=== PATIENT | female | born 1985 | race Caucasian/White ===

== ENCOUNTER 2020-02-10 14:04 | Outpatient (CLI) | payer OTHER, SELFPAY ==
--- NOTE | ~2020-02-10 | XR_ITS ---
EXAMINATION: XR chest 2V EXAM DATE: 02/10/2020 14:28 INDICATION: R07.81 - Pleurodynia, chest pain on inspiration, cough. TECHNIQUE: Frontal and lateral projections of the chest obtained and reviewed. There is no prior samra dy for comparison. FINDINGS: The lungs are clear. There are no pleural effusions. The cardiomediastinal silhouette is within normal limits. There is no pneumothorax suspected. The bones and soft tissues are unremarkab le. IMPRESSION: No acute cardiopulmonary findings. Reviewed, dictated and finalized at location A. E TENDER
== END 2020-02-10 14:05 | disposition home or self-care (01) ==
PROVIDERS: PCP Internal Medicine; Visit Provider Nurse Practitioner
DX: R07.81 Pleurodynia (principal)
CPT/HCPCS: 71046

== ENCOUNTER → 2021-10-12 15:05 | Outpatient (CLI) | payer OTHER, SELFPAY ==
--- NOTE | ~2021-10-12 | MR_ITS ---
EXAMINATION: MR brain/brain stem wo/w con DATE: 10/12/2021 15:44 INDICATION: Migraine headache, unspecified, not intractable, without status migrainosus. TECHNIQUE: Magnetic resonance imaging (MRI) of the brain and brainstem was performed without and with 17 mL MultiHance intravenous contrast. COMPARISON: None. FINDINGS: There is no intracranial hemorrhage, acute infarction, or abnormal intracranial mass lesion . The ventricles are normal in size. The paranasal sinuses are clear. The orbits are normal. The mast oid air cells are normal. IMPRESSION: 1. Normal brain. Reviewed, dictated and finalized at location A. IMPRESSION: 1. Normal brain.
== END ==
PROVIDERS: PCP Internal Medicine; Visit Provider Clinical Nurse Specialist
DX: G43.909 Migraine, unspecified, not intractable, without status migrainosus (principal)
CPT/HCPCS: 70553; A9577

== ENCOUNTER → 2021-10-18 11:38 | Outpatient (CLI) | payer OTHER, SELFPAY ==
--- NOTE | ~2021-10-18 | US_ITS ---
US thyroid INDICATION: Hypothyroidism. Anxiety. Heart palpitations. TECHNIQUE: Real-time sonographic images of the thyroid gland were obtained. COMPARISON: No prior studies for comparison. FINDINGS: The right thyroid lobe measures 5 x 1.4 x 1.4 cm. The left thyroid lobe measures 5.2 x 1.8 x 2 cm. There are multiple bilateral thyroid nodules, largest discrete nodule in the right lobe taras ures 9 x 7 x 6 mm and is hypoechoic, solid, wider than tall with ill-defined margins and no echogenic foci, TR 4. Largest mass in the left lobe measures 1.6 x 1.5 x 1.2 cm and is mixed solid and cystic, hypoechoic, wider than tall, ill-defined margins and no echogenic foci, TR 3. There is another solid hypoechoic mass of the left lobe measuring 1.5 x 1.1 x 1.3 cm which is wider than tall, ill-defined margins and no echogenic foci, TR 4. IMPRESSION: 1. Multiple bilateral thyroid nodules, 2 of which in the left lobe meet sonographic criteria for bio psy. Recommend ultrasound-guided fine-needle aspiration biopsy of 2 dominant masses in the left lobe. Reviewed, dictated and finalized at location A. IMPRESSION: 1. Multiple bilateral thyroid nodules, 2 of which in the left lobe meet sonogr aphic criteria for biopsy. Recommend ultrasound-guided fine-needle aspiration b iopsy of 2 dominant masses in the left lobe.
== END ==
PROVIDERS: PCP Clinical Nurse Specialist; Visit Provider Clinical Nurse Specialist
DX: E05.90 Thyrotoxicosis, unspecified without thyrotoxic crisis or storm (principal); E04.2 Nontoxic multinodular goiter
CPT/HCPCS: 76536

== ENCOUNTER 2021-10-26 10:33 | Outpatient (CLI) | payer OTHER, SELFPAY ==
[2021-10-26 20:30] LABS: Free T4 Free Thyroxine 1.11 ng/mL (0.78-2.19)
[2021-10-26 20:37] LABS: Thyroid Stimulating Hormone 0.127 uIU/mL (0.465-4.680)
== END 2021-10-26 10:34 | disposition home or self-care (01) ==
LOC: ANHGOSHLAB 10:35
PROVIDERS: PCP Internal Medicine; Visit Provider Clinical Nurse Specialist
DX: E05.90 Thyrotoxicosis, unspecified without thyrotoxic crisis or storm (principal)
CPT/HCPCS: 36415; 84439; 84443

== ENCOUNTER 2021-11-09 10:02 | Outpatient (CLI) | payer OTHER, SELFPAY ==
--- NOTE | ~2021-11-09 | US_ITS ---
EXAMINATION: US FNA w image guidance DATE: 11/09/2021 12:21 INDICATION: Multiple left thyroid nodules TECHNIQUE: A time-out was performed to verify the patient's name, date of , and procedure to be performed . Rigging Foreman ultrasound images were obtained. The procedure and its benefits and risks were discussed with the patient. Risks specifically discussed included bleeding and infection. The patient understood th e risks and agreed to proceed. The neck was prepped and draped in the usual sterile manner. 3 mL 1% lidocaine was used for local anesthesia. 6 passes were made with a 25G needle into the lesion. Appr opriate needle location was documented with continuous sonographic guidance. A sterile bandage was a pplied. There were no immediate complications. FINDINGS: Real-time ultrasound demonstrated 4 similar-appearing nodules mixed solid and cystic, wider than tall hypoechoic nodules with smooth or ill defined margins and without echogenic foci (TI-RADS 3, mildly suspicious , FNA if >=2.5 cm, annual followup is >=1.5 cm). The largest measured 1.7 cm in maximal di ameter with a smaller nodules measuring 1.5 cm, 1.4 cm and 1.2 cm. Given the classification is TI RAD S 3 nodules in the similar appearance was elected to proceed with biopsy of one of the largest left t hyroid nodule located in the mid gland. Subsequent images demonstrate biopsy needles advanced into th e dominant left thyroid nodule. IMPRESSION: 1. Successful ultrasound-guided fine needle aspiration of the 1.7 cm and largest of 4 TI RADS 3 mixe d solid and cystic nodules in the left thyroid lobe. Reviewed, dictated and finalized at location A. IMPRESSION: 1. Successful ultrasound-guided fine needle aspiration of the 1.[address] of 4 TI RADS 3 mixed solid and cystic nodules in the left thyroid lobe.
== END 2021-11-09 10:03 | disposition home or self-care (01) ==
PROVIDERS: PCP Internal Medicine; Visit Provider Clinical Nurse Specialist
DX: E04.2 Nontoxic multinodular goiter (principal)
CPT/HCPCS: 10005; 88173; 88305

== ENCOUNTER 2022-01-28 11:51 | Outpatient (CLI) | payer OTHER, SELFPAY ==
[2022-01-28 16:24] LABS: Kit Draw Collected
== END 2022-01-28 11:52 | disposition home or self-care (01) ==
LOC: ANHGOSHLAB 11:53
PROVIDERS: PCP Internal Medicine; Visit Provider Clinical Nurse Specialist
DX: E05.90 Thyrotoxicosis, unspecified without thyrotoxic crisis or storm (principal); Z53.8 Procedure and treatment not carried out for other reasons
CPT/HCPCS: 99199; 36415

== ENCOUNTER 2023-01-21 07:55 | Outpatient (CLI) | payer OTHER, SELFPAY ==
[2023-01-21 18:32] LABS: Alanine Aminotransferase 24 U/L (6-35); Albumin Level 4.1 g/dL (3.5-5.1); Alkaline Phosphatase 61 U/L (38-126); Anion Gap 4 mmol/L (8-16); Aspartate Amino Transferase 38 U/L (14-36); Bilirubin,Total 0.6 mg/dL (0.2-1.3); Blood Urea Nitrogen 11 mg/dL (7-17); Calcium 8.6 mg/dL (8.4-10.2); Carbon Dioxide 30 mmol/L (22-30); Chloride 102 mmol/L (98-107); Cholesterol 143 mg/dL (0-200); Estimated Glomerular Filt Rate > 60; Glucose 84 mg/dL (65-110); HDL Direct 47 mg/dL; Potassium 4.2 mmol/L (3.4-5.0); Sodium 136 mmol/L (137-145); Triglycerides 81 mg/dL (<150)
[2023-01-21 18:43] LABS: LDL Cholesterol Direct 73 mg/dL
[2023-01-21 19:11] LABS: Basophils Percent Auto 0.5 % (0.2-1.2); Eosinophils Absolute Auto 0.2 K/mm3 (0-0.3); Eosinophils Percent Auto 2.8 % (0-4.4); Hematocrit 40.8 % (37.0-47.0); Hemoglobin 12.9 g/dL (12.0-15.0); Immature Granulocyte Absolute 0.02 K/mm3 (0.00-0.031); Immature Granulocyte Percent A 0.3 % (0-0.5); Lymphocytes Absolute Auto 1.54 K/mm3 (0.9-3.2); Lymphocytes Percent Auto 25.5 % (18.3-44.2); Mean Corpuscular HGB Conc 31.6 g/dl (32-36); Mean Corpuscular Volume 88.7 fl (80-100); Mean Platelet Volume 11.4 fl (7.4-10.4); Monocytes Absolute Auto 0.4 K/mm3 (0.1-0.6); Monocytes Percent Auto 6.8 % (2.6-8.5); Neutrophils Absolute Auto 3.9 K/mm3 (1.3-6.7); Neutrophils Percent Auto 64.1 % (45.5-73.1); Platelet Count Result 217 k/mm3 (150-375); White Blood Count 6.1 K/mm3 (4.5-10.0)
[2023-01-24 06:05] LABS: Insulin Level Total 9.5 uIU/mL (<=18.4)
== END 2023-01-21 07:56 | disposition home or self-care (01) ==
LOC: ANHGOSHLAB 07:57
PROVIDERS: PCP Internal Medicine; Visit Provider Clinical Nurse Specialist
DX: Z13.220 Encounter for screening for lipoid disorders (principal); Z13.29 Encounter for screening for other suspected endocrine disorder; E66.9 Obesity, unspecified
CPT/HCPCS: 36415; 80053; 80061; 83525; 85025

== ENCOUNTER 2023-02-25 08:11 | Emergency (ER) | payer OTHER, SELFPAY ==
[2023-02-25 08:24] VITALS: BP 124/85; PULSE 87; RESP 16; TEMP 36.6; O2SAT 100
[2023-02-25 08:26] VITALS: BP 124/85; PULSE 87; RESP 16; TEMP 36.6; O2SAT 100
--- NOTE | 2023-02-25 08:26 | ED.GENADULT ---
HPI - General Adult General Chief complaint: Upper Respiratory Infection Stated complaint: Strep Symptoms Source: patient Mode of arrival: ambulatory Limitations: no limitations History of Present Illness HPI narrative: Patient presents for evaluation of sore throat since yesterday. She reports a headache as well. No fever, chills, nausea, vomiting, diarrhea, cough, shortness of breath, and otalgia. No recent sick contacts to her knowledge. She does not smoke. She tried nyquil without considerable improvement in her symptoms thereafter. Related Data Home Medications Medication Instructions Recorded Confirmed fremanezumab-vfrm 225 mg/1.5 mL 225 mg subcut MONTHLY 01/28/22 02/25/23 subcutaneous auto-injector (Ajovy) Allergies Allergy/AdvReac Type Severity Reaction Status Date / Time Penicillins Allergy Unknown Hives Verified 02/25/23 08:23 Review of Systems Review of Systems: CONSTITUTIONAL: Denies fever, chills, or sweats. EYES: Denies visual changes, redness, or discharge. ENT: Reports sore throat. Denies rhinorrhea, congestion, or otalgia. CARDIOVASCULAR: Denies chest pain, palpitations, or edema. RESPIRATORY: Denies cough or dyspnea. GASTROINTESTINAL: Denies abdominal pain, nausea, vomiting, or diarrhea. GENITOURINARY: Denies dysuria or hematuria. SKIN: Denies rash or itching. MUSCULOSKELETAL: Denies back pain, joint pain, or myalgia. NEUROLOGIC: Reports headache. Denies numbness, dizziness, or weakness. PSYCHIATRIC: Denies anxiety or depression. [facility] Past Medical History Medical History Migraine Surgical History Surgical History Delivery by section x2 Hx of appendectomy Family History Family History Mother Hypertension Father Patient's father is in good health Sibling Patient's sister is in good health Grandparent No problems noted. Social History Social History Smoking status: Never smoker Alcohol intake: never Lack of Transportation: No Lack of Food: Never True Current Housing: I Have Housing Concerned About Future Housing: No Difficulty Paying Gas/Electric Bills: No Difficulty Paying for Meds: No Currently Unemployed: No Education: High School Diploma/GED Exam Narrative: GENERAL: Well-appearing, well-nourished, and in no acute distress. HEAD: Normocephalic, atraumatic. EYES: PERRLA and EOMI. ENT: Nares clear, no rhinorrhea or epistaxis. Mucous membranes moist. Posterior pharyngeal erythema without exudate. Uvula is midline. Bilateral TMs pearly arias nonbulging NECK: Supple. No adenopathy or masses. No carotid bruits or JVD CHEST: Clear to auscultation. No respiratory distress. No wheezes rales or rhonchi HEART: Regular rate and rhythm. No murmur heard. Normal peripheral pulses. ABDOMEN: Soft, nontender, nondistended, normal active bowel sounds. EXTREMITIES: Normal range of motion. No edema. SKIN: Warm, dry, no rash. NEURO: No focal deficits. Alert and oriented x3. PSYCH: Normal mood and affect. Course Course Emergency Course: This is a 37-year-old female who presented for evaluation of sore throat. Rapid strep positive. Will start amoxicillin. She indicates she can tolerate amoxicillin despite PCN allergy. Increase hydration. OTC agents for symptom management. Follow up with primary provider. Go to the ER for worsening symptoms. Pt in agreement with plan of care. Level of Care: Express Care Visit Vital Signs Vital signs: Vital Signs Temperature 36.6 C 02/25/23 08:24 Pulse Rate 87 02/25/23 08:24 Respiratory Rate 16 02/25/23 08:24 Blood Pressure 124/85 02/25/23 08:24 Pulse Oximetry 100 02/25/23 08:24 Temperature 36.6 C 02/25/23 08:26 Pulse R
== END 2023-02-25 08:35 | disposition home or self-care (01) ==
PROVIDERS: Emergency Provider Nurse Practitioner; PCP Clinical Nurse Specialist
DX: J02.0 Streptococcal pharyngitis (principal)
CPT/HCPCS: 87880; 99213; G0463

== ENCOUNTER 2023-03-01 20:15 | Emergency (ER) | payer OTHER, SELFPAY ==
--- NOTE | ~2023-03-01 | XR_ITS ---
EXAM: XR elbow LT min 3V DATE: 03/01/2023 20:48 HISTORY: fall, pain . COMPARISON: None available. FINDINGS: Normal mineralization. No fracture or dislocation. No lytic or blastic lesion. Joint space s are maintained. No erosion or periosteal change. Displacement of the anterior fat pad. IMPRESSION: Elbow joint effusion which can accompany occult fractures, likely of the radial head in a patient of this age. Reviewed, dictated and finalized at location K. PAPER PRINTER HELPER IMPRESSION: Elbow joint effusion which can accompany occult fractures, likely o f the radial head in a patient of this age.
[2023-03-01 20:16] VITALS: BP 153/92; PULSE 81; RESP 16; TEMP 36.5; O2SAT 100
--- NOTE | 2023-03-01 22:13 | ED.UPPEXIN ---
HPI - Extremity Injury (Upper) General Chief Complaint: Extremity Injury, Upper Stated Complaint: fell on L elbow Time Seen by Provider: 03/01/23 20:37 Source: patient Mode of arrival: ambulatory Limitations: no limitations History of Present Illness HPI narrative: Patient is a 37-year-old female who presents the ED with report of left elbow pain. Patient reports she tripped over her dog tonight and fell. She states she landed with the majority of her weight against her left elbow. She complains of pain to her left elbow. Worse with movement. Denies left shoulder or left wrist pain. Denies numbness or tingling. She has not taken anything for pain. No head injury or LOC. Related Data Home Medications Medication Instructions Recorded Confirmed fremanezumab-vfrm 225 mg/1.5 mL 225 mg subcut MONTHLY 01/28/22 02/25/23 subcutaneous auto-injector (Ajovy) Allergies Allergy/AdvReac Type Severity Reaction Status Date / Time Penicillins Allergy Unknown Hives Verified 03/01/23 20:24 Review of Systems Review of Systems: CONSTITUTIONAL: Denies fever, chills, or sweats. MUSCULOSKELETAL: see HPI. NEUROLOGIC: Denies headache, numbness, or weakness. All systems reviewed & are unremarkable except as noted in HPI and below PMFSH Past Medical History Medical History Fracture of radial head, left, closed Migraine Surgical History Surgical History Delivery by section x2 Hx of appendectomy Family History Family History Mother Hypertension Father Patient's father is in good health Sibling Patient's sister is in good health Grandparent No problems noted. Social History Social History Smoking status: Never smoker Alcohol intake: never Lack of Transportation: No Lack of Food: Never True Current Housing: I Have Housing Concerned About Future Housing: No Difficulty Paying Gas/Electric Bills: No Difficulty Paying for Meds: No Currently Unemployed: No Education: High School Diploma/GED Exam Narrative: GENERAL: Well appearing, Obese with BMI of 31.7, non-toxic, in no acute distress. RESPIRATORY: Airway patent, respirations nonlabored. Clear to auscultation bilaterally, no rales, rhonchi, wheezing. CARDIOVASCULAR: Regular rate and rhythm without murmurs, rubs, or gallops. Radial pulses 2+ and equal bilaterally. MUSCULOSKELETAL: Moves all extremities. limited flexion/ extension/supination/ pronation of left elbow due to pain. Tenderness over lateral epicondyle, proximal radius. Swelling noted to left elbow joint. Sensation intact. Good capillary refill. Good corporate compliance manager strength on left. SKIN: Warm, dry, normal color. No rashes. NEURO: A&O X3. Speech clear. Cranial nerves II-XII grossly intact. Steady gait. No ataxic movements. PSYCHIATRIC: Appropriate mood and affect. Normal interaction. Course Vital Signs Vital signs: Vital Signs Temperature 97.7 F 03/01/23 20:16 Pulse Rate 81 03/01/23 20:16 Respiratory Rate 16 03/01/23 20:16 Blood Pressure 153/92 H 03/01/23 20:16 Pulse Oximetry 100 03/01/23 20:16 Oxygen Delivery Room Air 03/01/23 20:16 Temperature 97.7 F 03/01/23 20:16 Pulse Rate 72 03/01/23 22:29 Respiratory Rate 17 03/01/23 22:29 Blood Pressure 142/86 H 03/01/23 22:29 Pulse Oximetry 99 03/01/23 22:29 Oxygen Delivery Room Air 03/01/23 20:16 MDM - Extremity Injury (Upper) MDM Narrative Medical decision making narrative: Patient?s injury is consistent with musculoskeletal etiology. No signs of neurologic or vascular compromise on physical examination. Compartments are soft without signs of compartment syndrome. XR showing left elbow joint effusion and displacement of ante
[2023-03-01] MEDS: HYDROcodone/acetaminophen (*CRX) 5-325 MG TABLET 1 TAB PO (22:20)
[2023-03-01] MEDS: KETOROLAC (*BKC) 60 MG/2 ML VIAL IM (22:20)
[2023-03-01 22:29] VITALS: BP 142/86; PULSE 72; RESP 17; O2SAT 99
== END 2023-03-01 22:30 | disposition home or self-care (01) ==
PROVIDERS: Emergency Provider Physician Assistant; PCP Clinical Nurse Specialist
DX: S52.125A Nondisplaced fracture of head of left radius, initial encounter for closed fracture (principal); M25.422 Effusion, left elbow; W01.0XXA Fall on same level from slipping, tripping and stumbling without subsequent striking against object, initial encounter
CPT/HCPCS: 73080; 96372; 99284; A4565; A9270; J1885

== ENCOUNTER 2023-04-11 09:21 | Outpatient (CLI) | payer OTHER, SELFPAY ==
[2023-04-11 12:21] LABS: Alanine Aminotransferase 22 U/L (6-35); Albumin Level 4.5 g/dL (3.5-5.1); Alkaline Phosphatase 66 U/L (38-126); Anion Gap 7 mmol/L (8-16); Aspartate Amino Transferase 35 U/L (14-36); Bilirubin,Total 0.6 mg/dL (0.2-1.3); Blood Urea Nitrogen 9 mg/dL (7-17); Calcium 9.5 mg/dL (8.4-10.2); Carbon Dioxide 31 mmol/L (22-30); Chloride 101 mmol/L (98-107); Estimated Glomerular Filt Rate > 60; Glucose 103 mg/dL (65-110); Potassium 4.4 mmol/L (3.4-5.0); Sodium 139 mmol/L (137-145)
== END 2023-04-11 09:22 | disposition home or self-care (01) ==
LOC: ANHGOSHLAB 09:23
PROVIDERS: PCP Clinical Nurse Specialist; Visit Provider Clinical Nurse Specialist
DX: R10.11 Right upper quadrant pain (principal)
CPT/HCPCS: 36415; 80053

== ENCOUNTER → 2023-04-15 07:54 | Outpatient (CLI) | payer OTHER, SELFPAY ==
--- NOTE | ~2023-04-15 | US_ITS ---
Limited Abdominal Sonogram: Real-time sonographic imaging of the right upper quadrant was performed. Clinical History: Right upper quadrant pain Findings: The liver appears normal with no evidence of mass lesion or bile duct dilatation. Main por checo vein demonstrates normal direction of flow. The gallbladder is well distended, and contains echog enic, shadowing gallstone near the gallbladder neck. No gallbladder wall thickening. The common bile duct measures 3 mm. The visualized pancreas, aorta, and IVC are unremarkable. Right kidney measures 10.1 cm in length, without evidence of hydronephrosis. Impression: Cholelithiasis. Reviewed, dictated and finalized at location M. GER INTELLIGENCE Impression: Cholelithiasis.
== END ==
PROVIDERS: PCP Clinical Nurse Specialist; Visit Provider Clinical Nurse Specialist
DX: R10.11 Right upper quadrant pain (principal); K80.20 Calculus of gallbladder without cholecystitis without obstruction
CPT/HCPCS: 76705

== ENCOUNTER 2023-04-26 10:28 | Outpatient (CLI) | payer OTHER, SELFPAY ==
[2023-04-26 11:27] LABS: Amylase 79 U/L (30-110); Lipase 49 U/L (23-300)
== END 2023-04-26 10:29 | disposition home or self-care (01) ==
LOC: ANHLAB 10:30
PROVIDERS: PCP Clinical Nurse Specialist; Visit Provider Surgery
DX: Z01.818 Encounter for other preprocedural examination (principal); K80.20 Calculus of gallbladder without cholecystitis without obstruction
CPT/HCPCS: 36415; 82150; 83690

== ENCOUNTER 2023-04-28 03:03 | Day surgery (SDC) | payer OTHER, SELFPAY ==
[2023-04-21 14:11] VITALS: BMI 31.3
--- NOTE | 2023-04-21 14:15 | PC.NURSE ---
Report to the Outpatient Waiting Room, entrance under the green pavilion located off [facility], at time 12:00 on date 04/28/23. Planned Procedure Time: 2:00. Time changes happen often and if your time is changed the preop area will call you the afternoon before. - You and your visitor will be asked to self-screen and do not enter if you have any COVID symptoms. - A mask is optional within the hospital at this time. Patients may have clear liquids (water, carbonated beverages, clear teas, apple juice) until 3 hours prior to surgery with a maximum of 20 ounces. - No food from midnight until time of surgery Take the following medications with a SIP of water the morning of surgery: SERTRALINE DO NOT STOP ANY OF YOUR OTHER PRESCRIPTION MEDICATIONS PRIOR TO SURGERY ?EXCEPT THE FOLLOWING Medications to discontinue per physician: VITAMINS/SUPPLEMENTS Date to take last dose: 04/24/23 Please no make-up, nail spanish, hairspray, perfume, deodorant, or body powder the day of surgery. No jewelry (including any body piercings) or valuables the day of surgery, leave them at home. Please take a shower or bath the night before, or the morning of, surgery with an antibacterial soap. Wear comfortable, loose fitting clothing. - Jewelry must be removed prior to entering the operating room. Rings and piercings that are not removed may be cut off. - The hospital will not accept responsibility for valuables. - Please leave all valuables, including medications, at home the day of surgery. If you are going home after surgery, a licensed hook up driver must drive you home. - NO public transportation without another adult if you receive anesthesia. - We recommend that an adult stay with you for 24 hours following discharge. - We also recommend that you do not drive, make important decision, drink alcoholic beverages, or take any drugs that were not prescribed by your health care provider for at least 24 hours after your discharge time. Follow any additional instructions given to you from your surgeon. If you or anyone in your household have experienced Covid symptoms in the past week, please notify your surgeon or the nurse liaison at the phone number below for possible testing. Telephone instructions given to PT - SUKHJINDER SAPP and asked if any additional questions and then verbalized understanding. Patient advised to call surgeon office or pre surgery nurse liaison [phone] if any additional questions.
[2023-04-28] VITALS (11 sets, daily range): BP systolic 109–123; BP diastolic 54–73; PULSE 77–99; RESP 12–16; TEMP 36.3–36.8; O2SAT 98–100
--- NOTE | 2023-04-28 07:35 | WPDHPUPDATE1 ---
History and Physical Update Update Date/Time: 04/28/23 07:35 History and Physical has been reviewed, including an updated exam of the patient. There are NO changes in the patient's condition. Risks, benefits, and alternatives have been discussed and questions answered. Patient agrees to proceed with procedure.
[2023-04-28] MEDS: ACETAMINOPHEN 500 MG TABLET 1000 MG PO (12:00)
[2023-04-28] MEDS: LACTATED RINGERS 1,000 ML 30 ML IV CONT ×2 (12:10→14:59)
[2023-04-28] MEDS: KETOROLAC 15 MG/ML VIAL (*BKC) IV PUSH (12:15)
--- NOTE | 2023-04-28 12:52 | WPDANESEPPF ---
Anes - Initial Pre Proc Eval Procedure: Operation Date: 04/28/23 14:00 Proposed Procedures p Laparoscopic Cholecystectomy - Therese Manrique MD Date/Time: 04/28/23 12:52 Surgeon: Therese Manrique MD Pre Op Diagnosis: Chr Cholecystits with Calculous Patient Data Age: 37 Gender: F Height: 1.68 m Weight: 86.4 kg Last Vital Signs Temp 98.2 F 04/28/23 11:37 Pulse 92 04/28/23 11:37 Resp 16 04/28/23 11:37 BP 123/71 04/28/23 11:37 Pulse Ox 100 04/28/23 11:37 O2 Del Method Room Air 04/28/23 11:37 Allergies Allergy/AdvReac Type Severity Reaction Status Date / Time Penicillins Allergy Unknown Hives Verified 04/21/23 14:09 Home Medications Medication Instructions Recorded Confirmed Type zolmitriptan 5 mg nasal spray See Rx Instructions .Route 10/29/21 04/21/23 Rx .COMPLEX #6 ea fremanezumab-vfrm 225 mg/1.5 mL 225 mg subcut MONTHLY 01/28/22 04/21/23 History subcutaneous auto-injector (Ajovy) phentermine 37.5 mg tablet 37.5 mg PO DAILY #30 tabs 03/06/23 04/21/23 Rx sertraline 50 mg tablet 50 mg PO DAILY #90 tabs 04/11/23 04/21/23 Rx methimazole 5 mg tablet 5 mg PO HS 04/17/23 04/21/23 History cholecalciferol (vitamin D3) 25 25 mcg PO DAILY 04/21/23 04/21/23 History mcg (1,000 unit) chewable tablet (Vitamin D3) Patient hx anesthesia problems: none Family hx anesthesia problems: none Results Review: All pre-operative results and documents have been reviewed as part of the pre-operative evaluation. [facility] Past Medical History Medical History Fracture of radial head, left, closed Migraine Strain of left elbow Surgical History Surgical History Delivery by section x2 Hx of appendectomy Family History Family History Mother Hypertension Father Patient's father is in good health Sibling Patient's sister is in good health Grandparent No problems noted. 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 Informed Consent: The patient's anesthetic plan and its attendant risks and benefits were discussed with the patient/family/POA. Questions were solicited and answers provided to the satisfaction of the patient/family/POA.
[2023-04-28] MEDS: ceFAZolin 2 GM/D5W 50 ML 2 GM/50 ML BAG IVPB (13:06)
[2023-04-28] MEDS: BUPIVACAINE/EPINEPHRINE 0.5% 30 ML VIAL INFILTRATE (13:36)
--- NOTE | 2023-04-28 14:14 | P.OP_ITS ---
Procedure Note - Detailed Date of Procedure 04/28/23 Pre-op Diagnosis Chronic cholecystitis Post-op Diagnosis Same Procedure Performed Laparoscopic cholecystectomy Surgeon Therese Manrique MD Anesthesia General Indications 37-year-old female presented to the office complaining of postprandial right upper quadrant abdominal pain associated with nausea and vomiting. Workup including imaging significant for cholecystitis, cholelithiasis. Findings moderate cholecystitis Description of Procedure The patient was taken to the operating room placed in the supine position. After adequate induction of general anesthesia, the patient was prepped and draped in normal sterile fashion. A time-out was then performed to verify the patient's identity as well as the procedure being performed. I then made a 5 mm incision in the infraumbilical region. Through this, a Veress needle was placed into the peritoneal cavity and CO2 gas was then insufflated. After adequate pneumoperitoneum was achieved, the Veress needle was removed and a 5 mm optiview trocar was placed through this incision under direct visualization. I then placed the laparoscope through this trocar site and under direct visualization placed a further 12 mm subxiphoid port as well as 2 additional 5 mm ports in the right upper abdomen. The gallbladder was then identified and was noted to be moderately inflamed and distended. I was able to place a grasper at the dome of the gallbladder and this was retracted anterior and cephalad up over the liver. A 2nd retractor was then placed at the infundibulum and retracted laterally, this allowed visualization of the triangle of Calot. I then was able to visualize the cystic duct in its entirety from its proximal insertion into the gallbladder, to its distal junction with the common hepatic/common bile duct junction. At this point, I carefully skeletonized the proximal cystic duct with the [place] dissector. I then clipped and transected the proximal cystic duct. Next I visualized the cystic artery. Again the artery was skeletonized, clipped, and transected. I then used the Bovie cautery to take down the peritoneal attachments of the gallbladder off the liver bed. Once the gall bladder specimen was completely detached, an endo-pouch was placed through the 12 mm port site. I then placed the gallbladder specimen into the Endo pouch and removed the endo-pouch from the 12 mm port site. The specimen will now be sent to pathology for further review. Hemostasis was noted in the liver bed, the clips were noted to be in good position on both the cystic duct stump and the cystic artery stump. No other pathology was noted in the right upper quadrant. I then moved the laparoscope to the subxiphoid port. No iatrogenic injury or other pathology was noted in the lower abdomen. I then closed the 12 mm trocar site under direct visualization using the Roderick cone and 0 Vicryl suture. At this point, the abdomen was desufflated and all ports removed. All port sites were then closed with 4.O Monocryl subcuticular sutures. Dermabond was placed on each incision. The patient tolerated the procedure well, was extubated in the operating room postoperative and will be transferred to the recovery room in stable condition Estimated Blood Loss 5 Drains No Packing No Pathology Yes Complications No immediate complications Condition Stable Disposition PACU [facility] Billing Surgery - Charge Forward: Surgery Billing
[2023-04-28] MEDS: fentaNYL CITRATE INJ (*CRX) 100 MCG/2 ML VIAL 25 MCG IV PUSH ×8 (14:31→15:15)
[2023-04-28] MEDS: oxyCODONE HCL (*CRX) 5 MG TAB IR PO (15:56)
[2023-04-28] MEDS: ONDANSETRON INJ 4 MG/2 ML VIAL IV PUSH (16:23)
== END 2023-04-28 16:39 | disposition home or self-care (01) ==
PROVIDERS: PCP Clinical Nurse Specialist; Visit Provider Surgery
PROC: 0FT44ZZ Resection of Gallbladder, Percutaneous Endoscopic Approach (ICD-10-PCS; CPT 47562; principal; 2023-04-28 14:00)
DX: K80.10 Calculus of gallbladder with chronic cholecystitis without obstruction (principal); E66.9 Obesity, unspecified; Z68.30 Body mass index [BMI] 30.0-30.9, adult; Z98.890 Other specified postprocedural states
CPT/HCPCS: 47562; 36415; 82150; 83690; 88304; A9270; J0690; J1100; J1885; J2250; J2405; J2704; J3010; J7030; J7120

== ENCOUNTER 2023-11-11 08:32 | Outpatient (CLI) | payer OTHER, SELFPAY ==
[2023-11-11 16:11] LABS: Chloride 99 mmol/L (98-107); Potassium 4.4 mmol/L (3.4-5.0); Sodium 136 mmol/L (137-145)
[2023-11-11 16:12] LABS: Anion Gap 8 mmol/L (4-12); Blood Urea Nitrogen 9 mg/dL (7-17); Calcium 9.1 mg/dL (8.4-10.2); Carbon Dioxide 29 mmol/L (22-30); Estimated Glomerular Filt Rate > 60; Glucose 74 mg/dL (65-110)
[2023-11-19 19:08] LABS: Thyroid Stimulating Immunoglob <89 % baseline (<140)
== END 2023-11-11 08:33 | disposition home or self-care (01) ==
LOC: ANHGOSHLAB 08:34
PROVIDERS: PCP Clinical Nurse Specialist; Visit Provider Clinical Nurse Specialist
DX: E05.90 Thyrotoxicosis, unspecified without thyrotoxic crisis or storm (principal)
CPT/HCPCS: 36415; 80048; 84443; 84445

== ENCOUNTER 2023-11-19 13:44 | Outpatient (CLI) | payer OTHER, SELFPAY ==
--- NOTE | ~2023-11-19 | US_ITS ---
EXAMINATION: US thyroid DATE: 11/19/2023 14:05 INDICATION: Nontoxic goiter. TECHNIQUE: Multiple ultrasound images of the thyroid were obtained. COMPARISON: Ultrasound 10/18/2021 FINDINGS: The right thyroid lobe measures 5.2 x 1.7 x 1.4 cm. The left thyroid lobe measures 6.5 x 1.8 x 2.4 c m. In the thyroid isthmus, there is a 1.8 cm mixed cystic and solid, hypoechoic, wider than tall nod ule with smooth margin without echogenic foci (TI-RADS TR3). There are multiple subcentimeter nodules in the thyroid. In the right thyroid lobe, there is a 12 mm solid, hypoechoic, wider than tall nodul e with lobular margin without echogenic foci (TR4). In the left thyroid lobe, there is an 18 mm mixed cystic and solid, hypoechoic, wider than tall nodule with ill-defined margin without echogenic foci (TR3). In the left thyroid lobe, there is a 13 mm mixed cystic and solid, hypoechoic, wider than tall nodule with smooth margin without echogenic foci (TR3). IMPRESSION: 1. Multinodular goiter. Thyroid ultrasound is recommended in one year. Reviewed, dictated and finalized at location A.
== END 2023-11-19 13:45 ==
PROVIDERS: PCP Clinical Nurse Specialist; Visit Provider Internal Medicine Endocrinology, Diabetes & Metabolism
DX: E04.2 Nontoxic multinodular goiter (principal)
CPT/HCPCS: 76536